=== PATIENT | male | born 1990 | race Caucasian/White ===

== ENCOUNTER 2017-10-30 20:13 | Emergency (ER) | payer OTHER ==
[~2017-10-30] VITALS: Ht 193 cm; Wt 106.6 kg
[~2017-10-30 20:13] MED LIST: NAPR550 PO; Zyprexa10 MG PO
== END 2017-10-30 20:39 | disposition home or self-care (01) ==
LOC: ER 20:13
DX: F25.9 Schizoaffective disorder, unspecified (principal); F17.210 Nicotine dependence, cigarettes, uncomplicated; Z79.899 Other long term (current) drug therapy
CPT/HCPCS: 99283

== ENCOUNTER 2017-10-31 10:13 | Inpatient (IN) | payer OTHER ==
[~2017-10-31] VITALS: Ht 190.5 cm; Wt 90.3 kg
[2017-10-31 10:28] LABS: Source, Urine Clean Catch
[2017-10-31 10:32] LABS: Bilirubin, Urine Neg (Neg); Blood, Urine Neg (Neg); Glucose Qualitative, Urine Neg (Neg); Ketones, Urine 1+ (Neg); Leukocyte Esterase, Urine 1+ (Neg); Nitrite, Urine Neg (Neg); Protein, Urine Neg (Neg); Specific Gravity, Urine 1.015 (1.003-1.022); Urobilinogen, Urine 1+ (Normal)
[2017-10-31 10:40] LABS: Appearance, Urine Clear (Clear); Color, Urine Yellow (P-Yellow)
[2017-10-31 10:50] LABS: U Amphetamine Screen Not Detected; U Barbituate Screen Not Detected; U Benzodiazapine Screen Not Detected; U Cannabinoids Screen DETECTED; U Cocaine Screen Not Detected; U Methadone Screen Not Detected; U Methamphetamine Screen Not Detected; U Opiates Screen Not Detected; U Phencyclidine Screen Not Detected
[2017-10-31 10:51] LABS: U Buprenorphine Screen Not Detected; U Oxycodone Screen Not Detected; U Propoxyphene Screen Not Detected
[2017-10-31 10:56] LABS: Red Blood Cells, Urine 0-2 /hpf (0-2); Squamous Epithelial Cells Few /hpf (Few)
[2017-10-31 10:57] LABS: Bacteria Few /hpf; Mucus Light (0-Heavy)
[2017-10-31 10:59] LABS: BASOPHILS ABSOLUTE AUTO 0.02 K/mm3 (0.00-0.23); BASOPHILS PERCENT AUTO 0 % (0-2); EOSINOPHILS ABSOLUTE AUTO 0.07 K/mm3 (0.00-0.68); EOSINOPHILS PERCENT AUTO 1 % (0-6); Hematocrit 40.8 % (37.0-53.0); Hemoglobin 14.1 g/dL (13.5-17.5); IMMATURE GRAN ABSOLUTE AUTO 0.02 K/mm3 (0.00-0.10); IMMATURE GRAN PERCENT AUTO 0 % (0-1); LYMPHOCYTES ABSOLUTE AUTO 2.15 K/mm3 (0.84-5.20); LYMPHOCYTES PERCENT AUTO 24 % (21-46); MONOCYTES ABSOLUTE AUTO 0.65 K/mm3 (0.16-1.47); MONOCYTES PERCENT AUTO 7 % (4-13); Mean Corpuscular HGB Conc 34.6 g/dL (31.5-36.5); Mean Corpuscular Volume 90 fL (80-100); Mean Platelet Volume 10.3 fL (9.1-12.4); NEUTROPHILS ABSOLUTE AUTO 6.16 K/mm3 (1.96-9.15); NEUTROPHILS PERCENT AUTO 68 % (41-73); Platelet Count 273 K/mm3 (150-400); RDW Coefficient Variation 14.4 % (11.7-14.2); RDW Standard Deviation 47.2 fL (35.1-46.3); Red Blood Cell Count 4.55 M/mm3 (4.30-5.90); White Blood Cell Count 9.07 K/mm3 (4.00-11.30)
[2017-10-31 11:21] LABS: Alanine Aminotransfer (ALT/SGP 26 U/L (12-78); Albumin, Blood 3.9 g/dL (3.4-5.0); Albumin/Globulin Ratio 1.3 (0.8-1.8); Alk Phos 49 U/L (50-136); Anion Gap 7 mmol/L (6-16); Aspartate Aminotrans (AST/SGOT 21 U/L (12-37); Bilirubin, Total 0.7 mg/dL (0.1-1.0); Blood Urea Nitrogen 9 mg/dL (8-24); Bun/Creatinine Ratio 9.8 (12.0-20.0); CO2, Blood 25 mmol/L (21-32); Chloride, Blood 112 mmol/L (98-108); Creatinine, Blood 0.92 mg/dL (0.60-1.20); Ethanol (Alcohol), Blood, Med <3 mg/dL; Glomerular Filtration Rate >60 (60-); Glucose, Blood 79 mg/dL (70-99); Potassium, Blood 3.9 mmol/L (3.5-5.5); Salicylate 3.1 mg/dL (2.8-20.0); Sodium, Blood 144 mmol/L (136-145); Total Protein, Blood 6.9 g/dL (6.4-8.2)
[2017-10-31 11:26] LABS: Thyroid Stimulating Hormone 0.776 uIU/mL (0.360-4.800)
[2017-10-31 11:35] LABS: Acetaminophen, Random <2.0 ug/mL (10.0-30.0)
[2017-10-31 12:44] LABS: CPK Creatine Kinase 174 U/L (39-308)
[2017-11-05] MEDS ORDERED: OLAN5A PO (09:57)
[2017-11-05] MEDS ORDERED: Cyclobenzaprine5 MG (10:00)
[2017-11-05] MEDS ORDERED: NICO21TP (10:01)
[2017-11-05] MEDS ORDERED: Oxycodone-Apap1 EAC3 (10:04)
== END 2017-11-05 10:48 | DRG 917 ==
LOC: ER 10:13 → ICUW 10:14 → MEDS 14:20 → ICUW 11-01 17:00 → MEDS 11-02 12:12 → ICUW 11-02 12:12 → MEDS 11-02 16:40 → ENPENDDIS 11-05 12:24
PROVIDERS: Emergency Medicine
DX: T43.592A Poisoning by other antipsychotics and neuroleptics, intentional self-harm, initial encounter (principal); G92 Toxic encephalopathy; F20.9 Schizophrenia, unspecified; F17.210 Nicotine dependence, cigarettes, uncomplicated; Z59.0 Homelessness; R00.0 Tachycardia, unspecified
CPT/HCPCS: 36415; 80053; 81001; 82550; 82947; 84443; 85025; 87086; 93005; 93010; 96361; 96374; 96375; 96376; 99285; G0378; G0480; J0696; J7030; J7042; J7120

== ENCOUNTER 2017-11-26 15:55 | Emergency (ER) | payer OTHER ==
[~2017-11-26] VITALS: Ht 185.4 cm; Wt 93.0 kg
[~2017-11-26 15:55] MED LIST changes: +Cyclobenzaprine5 MG; +NICO21TP; +OLAN5A PO; +Oxycodone-Apap1 EAC3
== END 2017-11-26 16:31 | disposition left against medical advice (07) ==
LOC: ER 15:55
DX: M54.5 Low back pain (principal); F20.9 Schizophrenia, unspecified; F17.200 Nicotine dependence, unspecified, uncomplicated; Z79.899 Other long term (current) drug therapy

== ENCOUNTER 2017-11-29 08:37 | Observation (INO) | payer OTHER ==
[~2017-11-29] VITALS: Ht 193 cm; Wt 93.0 kg
[2017-11-29] MEDS ORDERED: Adderall 20 MG20 MG PO (09:00)
[2017-11-29 09:49] LABS: BASOPHILS ABSOLUTE AUTO 0.02 K/mm3 (0.00-0.23); BASOPHILS PERCENT AUTO 0 % (0-2); EOSINOPHILS ABSOLUTE AUTO 0.05 K/mm3 (0.00-0.68); EOSINOPHILS PERCENT AUTO 1 % (0-6); Hematocrit 44.5 % (37.0-53.0); Hemoglobin 14.9 g/dL (13.5-17.5); IMMATURE GRAN ABSOLUTE AUTO 0.04 K/mm3 (0.00-0.10); IMMATURE GRAN PERCENT AUTO 1 % (0-1); LYMPHOCYTES ABSOLUTE AUTO 1.61 K/mm3 (0.84-5.20); LYMPHOCYTES PERCENT AUTO 24 % (21-46); MONOCYTES ABSOLUTE AUTO 0.45 K/mm3 (0.16-1.47); MONOCYTES PERCENT AUTO 7 % (4-13); Mean Corpuscular HGB 31.4 pg (26.0-34.0); Mean Corpuscular HGB Conc 33.5 g/dL (31.5-36.5); Mean Corpuscular Volume 94 fL (80-100); Mean Platelet Volume 10.5 fL (9.1-12.4); NEUTROPHILS ABSOLUTE AUTO 4.69 K/mm3 (1.96-9.15); NEUTROPHILS PERCENT AUTO 68 % (41-73); Platelet Count 257 K/mm3 (150-400); RDW Coefficient Variation 14.5 % (11.7-14.2); RDW Standard Deviation 50.4 fL (35.1-46.3); Red Blood Cell Count 4.75 M/mm3 (4.30-5.90); White Blood Cell Count 6.86 K/mm3 (4.00-11.30)
[2017-11-29 10:10] LABS: Alanine Aminotransfer (ALT/SGP 27 U/L (12-78); Albumin, Blood 3.9 g/dL (3.4-5.0); Alk Phos 60 U/L (50-136); Anion Gap 7 mmol/L (6-16); Aspartate Aminotrans (AST/SGOT 14 U/L (12-37); Bilirubin, Total 0.2 mg/dL (0.1-1.0); Blood Urea Nitrogen 7 mg/dL (8-24); Bun/Creatinine Ratio 9.3 (12.0-20.0); CO2, Blood 26 mmol/L (21-32); Calcium, Blood 9.1 mg/dL (8.5-10.1); Chloride, Blood 109 mmol/L (98-108); Creatinine, Blood 0.75 mg/dL (0.60-1.20); Ethanol (Alcohol), Blood, Med <3 mg/dL; Globulin, Blood 3.8 g/dL (2.2-4.0); Glomerular Filtration Rate >60 (60-); Glucose, Blood 63 mg/dL (70-99); Potassium, Blood 3.8 mmol/L (3.5-5.5); Salicylate 2.9 mg/dL (2.8-20.0); Sodium, Blood 142 mmol/L (136-145); Total Protein, Blood 7.7 g/dL (6.4-8.2)
[2017-11-29 10:13] LABS: Thyroid Stimulating Hormone 0.352 uIU/mL (0.360-4.800)
[2017-11-29 10:18] LABS: Acetaminophen, Random <2.0 ug/mL (10.0-30.0)
[2017-11-29 11:44] LABS: Bilirubin, Urine Neg (Neg); Blood, Urine Neg (Neg); Glucose Qualitative, Urine Neg (Neg); Ketones, Urine Neg (Neg); Leukocyte Esterase, Urine Neg (Neg); Nitrite, Urine Neg (Neg); Protein, Urine Neg (Neg); Specific Gravity, Urine 1.015 (1.003-1.022); Urobilinogen, Urine NORM (Normal)
[2017-11-29 12:05] LABS: Color, Urine Yellow (P-Yellow)
[2017-11-29 12:06] LABS: Appearance, Urine Clear (Clear)
[2017-11-29 12:59] LABS: U Amphetamine Screen DETECTED; U Barbituate Screen Not Detected; U Benzodiazapine Screen Not Detected; U Buprenorphine Screen Not Detected; U Cannabinoids Screen DETECTED; U Cocaine Screen Not Detected; U Methadone Screen Not Detected; U Methamphetamine Screen Not Detected; U Opiates Screen Not Detected; U Oxycodone Screen Not Detected; U Phencyclidine Screen Not Detected; U Propoxyphene Screen Not Detected
[2017-11-29] MEDS ORDERED: Zyprexa20 MG PO (15:51)
== END 2017-11-29 16:17 | disposition home or self-care (01) ==
LOC: ER 08:37 → EOR 10:32
PROVIDERS: Emergency Medicine
DX: F20.9 Schizophrenia, unspecified (principal); R45.851 Suicidal ideations; F17.210 Nicotine dependence, cigarettes, uncomplicated; Z79.899 Other long term (current) drug therapy
CPT/HCPCS: 36415; 80053; 81003; 84443; 85025; 99285; G0378; G0480; Q3014

== ENCOUNTER 2017-11-30 19:04 | Observation (INO) | payer OTHER ==
[~2017-11-30] VITALS: Ht 193 cm; Wt 91.1 kg
[~2017-11-30 19:04] MED LIST changes: +Adderall 20 MG20 MG PO; +Zyprexa20 MG PO
[2017-11-30 19:52] LABS: BASOPHILS ABSOLUTE AUTO 0.03 K/mm3 (0.00-0.23); BASOPHILS PERCENT AUTO 0 % (0-2); EOSINOPHILS ABSOLUTE AUTO 0.06 K/mm3 (0.00-0.68); EOSINOPHILS PERCENT AUTO 1 % (0-6); Hematocrit 42.1 % (37.0-53.0); Hemoglobin 14.5 g/dL (13.5-17.5); IMMATURE GRAN ABSOLUTE AUTO 0.03 K/mm3 (0.00-0.10); IMMATURE GRAN PERCENT AUTO 0 % (0-1); LYMPHOCYTES ABSOLUTE AUTO 2.79 K/mm3 (0.84-5.20); LYMPHOCYTES PERCENT AUTO 32 % (21-46); MONOCYTES ABSOLUTE AUTO 0.62 K/mm3 (0.16-1.47); MONOCYTES PERCENT AUTO 7 % (4-13); Mean Corpuscular HGB Conc 34.4 g/dL (31.5-36.5); Mean Corpuscular Volume 90 fL (80-100); Mean Platelet Volume 10.5 fL (9.1-12.4); NEUTROPHILS ABSOLUTE AUTO 5.24 K/mm3 (1.96-9.15); NEUTROPHILS PERCENT AUTO 60 % (41-73); Platelet Count 299 K/mm3 (150-400); RDW Coefficient Variation 14.1 % (11.7-14.2); RDW Standard Deviation 46.7 fL (35.1-46.3); Red Blood Cell Count 4.67 M/mm3 (4.30-5.90); White Blood Cell Count 8.77 K/mm3 (4.00-11.30)
[2017-11-30 19:57] LABS: Source, Urine Voided
[2017-11-30 19:59] LABS: Appearance, Urine Clear (Clear); Bilirubin, Urine Neg (Neg); Blood, Urine Neg (Neg); Color, Urine Yellow (P-Yellow); Glucose Qualitative, Urine Neg (Neg); Ketones, Urine Neg (Neg); Leukocyte Esterase, Urine Neg (Neg); Nitrite, Urine Neg (Neg); Protein, Urine Neg (Neg); Urobilinogen, Urine NORM (Normal); pH, Urine 6.5 (5.0-8.0)
[2017-11-30 20:08] LABS: Alanine Aminotransfer (ALT/SGP 31 U/L (12-78); Albumin, Blood 3.8 g/dL (3.4-5.0); Albumin/Globulin Ratio 1.1 (0.8-1.8); Alk Phos 58 U/L (50-136); Anion Gap 10 mmol/L (6-16); Aspartate Aminotrans (AST/SGOT 22 U/L (12-37); Bilirubin, Total 0.2 mg/dL (0.1-1.0); Blood Urea Nitrogen 8 mg/dL (8-24); Bun/Creatinine Ratio 8.3 (12.0-20.0); CO2, Blood 25 mmol/L (21-32); Calcium, Blood 8.9 mg/dL (8.5-10.1); Chloride, Blood 107 mmol/L (98-108); Creatinine, Blood 0.96 mg/dL (0.60-1.20); Ethanol (Alcohol), Blood, Med <3 mg/dL; Globulin, Blood 3.6 g/dL (2.2-4.0); Glomerular Filtration Rate >60 (60-); Glucose, Blood 99 mg/dL (70-99); Potassium, Blood 3.9 mmol/L (3.5-5.5); Salicylate 2.8 mg/dL (2.8-20.0); Sodium, Blood 142 mmol/L (136-145); Total Protein, Blood 7.4 g/dL (6.4-8.2)
[2017-11-30 20:13] LABS: U Amphetamine Screen Not Detected; U Barbituate Screen Not Detected; U Benzodiazapine Screen Not Detected; U Buprenorphine Screen Not Detected; U Cannabinoids Screen DETECTED; U Cocaine Screen Not Detected; U Methadone Screen Not Detected; U Methamphetamine Screen Not Detected; U Opiates Screen Not Detected; U Oxycodone Screen Not Detected; U Phencyclidine Screen Not Detected; U Propoxyphene Screen Not Detected
[2017-11-30 20:21] LABS: Acetaminophen, Random <2.0 ug/mL (10.0-30.0)
[2017-12-01 04:21] LABS: Hematocrit 43.2 % (37.0-53.0); Hemoglobin 14.9 g/dL (13.5-17.5); Mean Corpuscular HGB 31.4 pg (26.0-34.0); Mean Corpuscular HGB Conc 34.5 g/dL (31.5-36.5); Mean Corpuscular Volume 91 fL (80-100); Mean Platelet Volume 10.4 fL (9.1-12.4); Platelet Count 267 K/mm3 (150-400); RDW Standard Deviation 47.2 fL (35.1-46.3); Red Blood Cell Count 4.74 M/mm3 (4.30-5.90); White Blood Cell Count 7.65 K/mm3 (4.00-11.30)
[2017-12-01 04:43] LABS: Alanine Aminotransfer (ALT/SGP 26 U/L (12-78); Albumin, Blood 3.6 g/dL (3.4-5.0); Albumin/Globulin Ratio 1.1 (0.8-1.8); Alk Phos 57 U/L (50-136); Anion Gap 8 mmol/L (6-16); Aspartate Aminotrans (AST/SGOT 13 U/L (12-37); Bilirubin, Total 0.3 mg/dL (0.1-1.0); Blood Urea Nitrogen 7 mg/dL (8-24); Bun/Creatinine Ratio 9.4 (12.0-20.0); CO2, Blood 27 mmol/L (21-32); Calcium, Blood 8.9 mg/dL (8.5-10.1); Chloride, Blood 113 mmol/L (98-108); Creatinine, Blood 0.74 mg/dL (0.60-1.20); Globulin, Blood 3.3 g/dL (2.2-4.0); Glomerular Filtration Rate >60 (60-); Glucose, Blood 81 mg/dL (70-99); Potassium, Blood 3.7 mmol/L (3.5-5.5); Sodium, Blood 148 mmol/L (136-145); Total Protein, Blood 6.9 g/dL (6.4-8.2)
[2017-12-02 04:35] LABS: BASOPHILS ABSOLUTE AUTO 0.02 K/mm3 (0.00-0.23); BASOPHILS PERCENT AUTO 0 % (0-2); EOSINOPHILS ABSOLUTE AUTO 0.11 K/mm3 (0.00-0.68); EOSINOPHILS PERCENT AUTO 1 % (0-6); Hematocrit 41.5 % (37.0-53.0); Hemoglobin 14.2 g/dL (13.5-17.5); IMMATURE GRAN ABSOLUTE AUTO 0.04 K/mm3 (0.00-0.10); IMMATURE GRAN PERCENT AUTO 1 % (0-1); LYMPHOCYTES ABSOLUTE AUTO 3.11 K/mm3 (0.84-5.20); LYMPHOCYTES PERCENT AUTO 36 % (21-46); MONOCYTES ABSOLUTE AUTO 0.64 K/mm3 (0.16-1.47); MONOCYTES PERCENT AUTO 7 % (4-13); Mean Corpuscular HGB 31.3 pg (26.0-34.0); Mean Corpuscular HGB Conc 34.2 g/dL (31.5-36.5); Mean Corpuscular Volume 92 fL (80-100); Mean Platelet Volume 10.7 fL (9.1-12.4); NEUTROPHILS PERCENT AUTO 55 % (41-73); Platelet Count 271 K/mm3 (150-400); RDW Coefficient Variation 14.4 % (11.7-14.2); RDW Standard Deviation 48.6 fL (35.1-46.3); Red Blood Cell Count 4.53 M/mm3 (4.30-5.90); White Blood Cell Count 8.62 K/mm3 (4.00-11.30)
[2017-12-02 04:56] LABS: Anion Gap 11 mmol/L (6-16); Blood Urea Nitrogen 8 mg/dL (8-24); CO2, Blood 25 mmol/L (21-32); Calcium, Blood 8.8 mg/dL (8.5-10.1); Chloride, Blood 109 mmol/L (98-108); Glomerular Filtration Rate >60 (60-); Glucose, Blood 108 mg/dL (70-99); Potassium, Blood 3.3 mmol/L (3.5-5.5); Salicylate 2.2 mg/dL (2.8-20.0); Sodium, Blood 145 mmol/L (136-145)
[2017-12-09] MEDS ORDERED: OLAN5 PO (15:49)
[2017-12-09] MEDS ORDERED: CLON.1 PO (15:50)
[2017-12-09] MEDS ORDERED: META800 PO (15:50)
[2017-12-09] MEDS ORDERED: NAPR500 PO (15:51)
[2017-12-09] MEDS ORDERED: Nicoderm Cq1 EAC1 TD (15:51)
[2017-12-09] MEDS ORDERED: QUET100 PO (15:52)
[2017-12-09] MEDS ORDERED: QUET25 PO (15:53)
== END 2017-12-09 16:15 | disposition home or self-care (01) ==
LOC: ER 19:04 → ICUW 19:05 → ICUE 19:05 → MEDS 12-02 12:38
PROVIDERS: Emergency Medicine; Internal Medicine
DX: T43.592A Poisoning by other antipsychotics and neuroleptics, intentional self-harm, initial encounter (principal); F20.9 Schizophrenia, unspecified; E87.1 Hypo-osmolality and hyponatremia; E87.6 Hypokalemia; M54.9 Dorsalgia, unspecified; M54.2 Cervicalgia; G89.29 Other chronic pain; F17.200 Nicotine dependence, unspecified, uncomplicated; R00.0 Tachycardia, unspecified; Z79.899 Other long term (current) drug therapy
CPT/HCPCS: 36415; 51701; 80048; 80053; 81003; 84443; 85025; 85027; 93005; 93010; 96360; 96361; 96372; 96374; 96376; 99285; G0378; G0480; J1650; J2060; J7030

== ENCOUNTER 2018-02-20 12:55 | Emergency (ER) | payer OTHER ==
[~2018-02-20] VITALS: Ht 175.3 cm; Wt 90.7 kg
[~2018-02-20 12:55] MED LIST changes: +Bactrim Ds Tab1 EACH PO; +CEPH500 PO; +CLON.1 PO; +META800 PO; +NAPR500 PO; +Naprosyn500 MG PO; +Nicoderm Cq1 EAC1 TD; +OLAN5 PO; +OLAN5A MM; +QUET100 PO; +QUET25 PO
[2018-02-20] MEDS ORDERED: Bactrim Ds Tab1 EACH PO (13:40)
[2018-02-20] MEDS ORDERED: IBUP800 PO (13:40)
[2018-02-20] MEDS ORDERED: CEPH500 PO (13:40)
== END 2018-02-20 14:50 | disposition home or self-care (01) ==
LOC: ER 12:55
DX: L03.115 Cellulitis of right lower limb (principal); L03.116 Cellulitis of left lower limb; F20.9 Schizophrenia, unspecified; F17.200 Nicotine dependence, unspecified, uncomplicated
CPT/HCPCS: 99283

== ENCOUNTER 2018-06-25 15:05 | Emergency (ER) | payer OTHER ==
[~2018-06-25] VITALS: Ht 193 cm; Wt 103.0 kg
[~2018-06-25 15:05] MED LIST changes: +IBUP800 PO; +OLAN10 PO
[2018-06-25] MEDS ORDERED: Zyprexa10 MG PO (15:58)
[2018-06-25] MEDS ORDERED: Mucinex100 MG PO (15:58)
[2018-07-19] MEDS ORDERED: OLAN5A SL (20:48)
== END 2018-06-25 16:05 | disposition home or self-care (01) ==
LOC: ER 15:05
DX: J11.1 Influenza due to unidentified influenza virus with other respiratory manifestations (principal); F20.9 Schizophrenia, unspecified; F17.200 Nicotine dependence, unspecified, uncomplicated; Z79.2 Long term (current) use of antibiotics; Z79.899 Other long term (current) drug therapy
CPT/HCPCS: 87081; 87430; 99283

== ENCOUNTER 2018-07-11 11:42 | Emergency (ER) | payer OTHER ==
[~2018-07-11] VITALS: Ht 193 cm; Wt 103.0 kg
[~2018-07-11 11:42] MED LIST changes: +Mucinex100 MG PO
[2018-07-11] MEDS ORDERED: Naprosyn500 MG PO (13:17)
[2018-07-19] MEDS ORDERED: OLAN5A SL (20:48)
== END 2018-07-11 13:35 | disposition home or self-care (01) ==
LOC: ER 11:42
DX: M54.6 Pain in thoracic spine (principal); Z79.2 Long term (current) use of antibiotics; Z79.899 Other long term (current) drug therapy
CPT/HCPCS: 96372; 99282-25; J1885

== ENCOUNTER 2018-07-28 00:45 | Observation (INO) | payer OTHER ==
[~2018-07-28] VITALS: Ht 193 cm; Wt 100.2 kg
[~2018-07-28 00:45] MED LIST changes: +OLAN5A SL
== END 2018-07-28 13:26 | disposition home or self-care (01) ==
LOC: ER 00:45 → EOR 00:46
PROVIDERS: ADMIT Emergency Medicine
DX: F20.9 Schizophrenia, unspecified (principal); F17.200 Nicotine dependence, unspecified, uncomplicated; Z79.899 Other long term (current) drug therapy
CPT/HCPCS: 99285; G0378; Q3014

== ENCOUNTER → 2019-01-04 | Outpatient (CLI) | payer OTHER ==
[2019-01-04 16:53] LABS: U Amphetamine Screen Not Detected; U Barbituate Screen Not Detected; U Benzodiazapine Screen Not Detected; U Buprenorphine Screen Not Detected; U Cannabinoids Screen Not Detected; U Cocaine Screen Not Detected; U Methadone Screen Not Detected; U Methamphetamine Screen Not Detected; U Opiates Screen Not Detected; U Oxycodone Screen Not Detected; U Phencyclidine Screen Not Detected; U Propoxyphene Screen Not Detected
== END ==
LOC: LAB SHORT 16:15 → LAB 16:15
PROVIDERS: Registered Nurse
DX: Z51.81 Encounter for therapeutic drug level monitoring (principal); Z79.899 Other long term (current) drug therapy

== ENCOUNTER 2022-03-30 06:50 | Emergency (ER) | payer OTHER ==
[~2022-03-30] VITALS: Ht 182.9 cm; Wt 79.4 kg
[~2022-03-30 06:50] MED LIST changes: +BENZ2 PO; +CHLORPROMAZINE PO; +QUET300 PO; +QUETIAPINE FUM PO; +ZOLOFT100 M9 PO
[2022-03-30] MEDS ORDERED: BENZ2 PO (07:19)
[2022-03-30] MEDS ORDERED: CHLORPROMAZINE PO (07:19)
== END 2022-03-30 07:38 | disposition home or self-care (01) ==
LOC: ER 06:50
DX: F20.9 Schizophrenia, unspecified (principal); Z87.891 Personal history of nicotine dependence
CPT/HCPCS: 99283; A9270

== ENCOUNTER 2023-03-08 01:57 | Emergency (ER) | payer OTHER ==
[~2023-03-08] VITALS: Ht 185.4 cm; Wt 102.1 kg
[2023-03-08 02:01] VITALS: BP 153/103
== END 2023-03-08 03:04 | disposition home or self-care (01) ==
LOC: ER 01:57
DX: Z03.6 Encounter for observation for suspected toxic effect from ingested substance ruled out (principal); F20.9 Schizophrenia, unspecified; Z87.891 Personal history of nicotine dependence
CPT/HCPCS: 99283

== ENCOUNTER 2025-03-09 12:11 | Inpatient (IN) | payer OTHER ==
[~2025-03-09] VITALS: Ht 185.4 cm; Wt 70.5 kg
[2025-03-09] MEDS ORDERED: LORazepam 2 MG/ML 1ML Injection IV ONE (12:55)
[2025-03-09] MEDS ORDERED: NS 1,000 ML IV SCH ×2 (12:55→15:10)
[2025-03-09 12:58] LABS: BASOPHILS ABSOLUTE AUTO 0.02 K/mm3 (0.00-0.23); BASOPHILS PERCENT AUTO 0 % (0-2); EOSINOPHILS ABSOLUTE AUTO 0.15 K/mm3 (0.00-0.68); EOSINOPHILS PERCENT AUTO 3 % (0-6); Hematocrit 48.7 % (37.0-53.0); Hemoglobin 17.4 g/dL (13.5-17.5); IMMATURE GRAN ABSOLUTE AUTO 0.01 K/mm3 (0.00-0.10); IMMATURE GRAN PERCENT AUTO 0 % (0-1); LYMPHOCYTES ABSOLUTE AUTO 1.37 K/mm3 (0.84-5.20); LYMPHOCYTES PERCENT AUTO 26 % (21-46); MONOCYTES ABSOLUTE AUTO 0.36 K/mm3 (0.16-1.47); MONOCYTES PERCENT AUTO 7 % (4-13); Mean Corpuscular HGB Conc 35.7 g/dL (31.5-36.5); Mean Corpuscular Volume 90 fL (80-100); NEUTROPHILS ABSOLUTE AUTO 3.39 K/mm3 (1.96-9.15); NEUTROPHILS PERCENT AUTO 64 % (41-73); NRBC ABSOLUTE 0.00 K/mm3 (0.00-0.02); NRBC Auto 0.0 /100 WBC (0.0-0.2); Platelet Count 201 K/mm3 (150-400); RDW Coefficient Variation 12.6 % (11.7-14.2); RDW Standard Deviation 41.2 fL (35.1-46.3)
[2025-03-09 13:10] LABS: Alanine Aminotransfer (ALT/SGP 42.0 U/L (12-78); Albumin, Blood 4.1 g/dL (3.4-5.0); Albumin/Globulin Ratio 1.2 (0.8-1.8); Anion Gap 9.0 mmol/L (3-11); Aspartate Aminotrans (AST/SGOT 26.0 U/L (12-37); Bilirubin, Total 0.8 mg/dL (0.1-1.0); Blood Urea Nitrogen 6.0 mg/dL (8-24); CO2, Blood 25.0 mmol/L (21-32); Calcium, Blood 9.8 mg/dL (8.5-10.1); Chloride, Blood 104.0 mmol/L (98-108); Creatinine, Blood 1.05 mg/dL (0.60-1.20); Globulin, Blood 3.4 g/dL (2.2-4.0); Glucose, Blood 106.0 mg/dL (70-99); Potassium, Blood 3.5 mmol/L (3.5-5.5); Sodium, Blood 134.0 mmol/L (136-145); Total Protein, Blood 7.5 g/dL (6.4-8.2)
[2025-03-09 14:15] LABS: U Amphetamine Screen Not Detected; U Barbituate Screen Not Detected; U Benzodiazapine Screen Not Detected; U Buprenorphine Screen Not Detected; U Cannabinoids Screen DETECTED; U Cocaine Screen Not Detected; U Methadone Screen Not Detected; U Methamphetamine Screen Not Detected; U Opiates Screen Not Detected; U Oxycodone Screen Not Detected; U Phencyclidine Screen Not Detected
[2025-03-09] MEDS ORDERED: FLU VACC TS2025-26(6MOS UP)/PF 45 MCG/0.5 ML SYRINGE IM SCH (15:05)
[2025-03-09] MEDS ORDERED: NS 1,000 ML IV ONE ×2 (16:00→18:24)
--- NOTE | 2025-03-09 18:53 | NUR ---
ADMISSION NOTE: PATIENT ARRIVES TO ROOM AT 1846 VIA GURNEY FROM ER FOR DX'S OF CATATONIA SCHITZOPRENIA. PATIENT TRANSFERRED TO BED c SBA. QUICK ADMISSION COMPLETED. REPORTS GIVEN TO NOC SUSANA VARMA.
[2025-03-09 18:58] VITALS: BP 134/91
[2025-03-09] MEDS ORDERED: LORazepam 2 MG/ML 1ML Injection IV SCH (21:00)
[2025-03-09] MEDS ORDERED: OLAN5 PO (22:06)
[2025-03-09] MEDS ORDERED: BENZ1 PO (22:15)
[2025-03-09] MEDS ORDERED: OMEP20ER PO (22:16)
[2025-03-10 01:48] VITALS: BP 127/88
--- NOTE | 2025-03-10 05:15 | NUR ---
SHIFT SUMMARY PT ALERT BUT DIFFICULT TO ASSESS MENTATION. PT DOES NOT ENGAGE IN CONVERSATION BUT WILL NOD HEAD "YES" TO YES/NO QUESTIONS AND GRUNTS. PT HAS FLAT EFFECT. PT DID EAT SOME SNACK DURING THE NIGHT. NS INFUSING PER EMAR. UPDATED PT's MOM AND START OF SHIFT. VSS. PT DOES NOT USE CALL LIGHT SO BED ALARM ON. BED IN LOWEST POSITION AND CALL LIGHT IN REACH.
[2025-03-10 07:40] VITALS: BP 116/68
[2025-03-10] MEDS ORDERED: Enoxaparin 40 MG/0.4 ML SYR SC SCH (09:00)
--- NOTE | 2025-03-10 10:38 | NUR ---
CONSULT-VERBAL ORDER NOTE: DR. REYES (PHYCHIATRY) CAME IN AT 1038 FOR CONSULT, SPOKE TO PATIENT BRIEFLY. RECEIVED VO TO CHANGED ATIVAN 1 MG IV FREQUENCY TO FOUR TIMES DAILY AND CTM.
[2025-03-10] MEDS ORDERED: LORazepam 2 MG/ML 1ML Injection IV SCH (13:00)
[2025-03-10 13:44] LABS: CHOL/HDL RATIO 4.1; Cholesterol 143 mg/dL (50-200); HDL Cholesterol 35 mg/dL (>39); LDL/HDL RATIO 2.6; Low Density Lipoprotein Chol 92 mg/dL (0-110); Thyroid Stimulating Hormone 1.050 uIU/mL (0.360-4.800); Triglycerides 79 mg/dL (30-140); Very Low Density Lipoprot Chol 15 mg/dL (6-28)
[2025-03-10 15:24] VITALS: BP 132/83
--- NOTE | 2025-03-10 18:08 | NUR ---
SHIFT SUMMARY: PATIENT A/OX3, ANSWER TO SHORT QUESTIONS AND SOMETIMES HE ANSWER c "LUDWIG, UH, NAH." PATIENT HAS FLAT AFFECT, FOLLOWING COMMANDS AND COOPERATIVE c CARE. PATIENT HAS BEEN DRINKING FLUIDS, BUT FEW BITES FOR BREAKFAST AND LUNCH. PATIENT HEAD CT W/OUT CONTRAST WAS DONE TODAY c RESULT AVAILABLE TO VIEW. PATIENT AMBULATED TO BATHROOM c SBA. VITAL SIGNS REVIEWED. BED ALARM ON FOR SAFETY. CALL LIGHT IN REACH.
[2025-03-10 21:13] VITALS: BP 123/80
[2025-03-11 03:35] VITALS: BP 119/80
--- NOTE | 2025-03-11 04:28 | NUR ---
SHIFT SUMMARY PT A&Ox2-3. FLAT EFFECT. RESPONDS TO QUESTIONS WITH GRUNTS OR SHORT ANSWERS. NS INFUSING @ 100ml/hr. PT EATING AND DRINKING WELL. PT's MOM GIVEN UPDATE. VSS. BED ALARM ON. BED IN LOWEST POSITION AND CALL LIGHT IN REACH.
[2025-03-11 06:20] LABS: BASOPHILS ABSOLUTE AUTO 0.03 K/mm3 (0.00-0.23); BASOPHILS PERCENT AUTO 1 % (0-2); EOSINOPHILS ABSOLUTE AUTO 0.18 K/mm3 (0.00-0.68); EOSINOPHILS PERCENT AUTO 3 % (0-6); Hematocrit 41.7 % (37.0-53.0); Hemoglobin 14.6 g/dL (13.5-17.5); IMMATURE GRAN ABSOLUTE AUTO 0.01 K/mm3 (0.00-0.10); IMMATURE GRAN PERCENT AUTO 0 % (0-1); LYMPHOCYTES ABSOLUTE AUTO 1.70 K/mm3 (0.84-5.20); LYMPHOCYTES PERCENT AUTO 32 % (21-46); MONOCYTES ABSOLUTE AUTO 0.52 K/mm3 (0.16-1.47); MONOCYTES PERCENT AUTO 10 % (4-13); Mean Corpuscular HGB Conc 35.0 g/dL (31.5-36.5); Mean Corpuscular Volume 92 fL (80-100); NEUTROPHILS ABSOLUTE AUTO 2.82 K/mm3 (1.96-9.15); NEUTROPHILS PERCENT AUTO 54 % (41-73); NRBC ABSOLUTE 0.00 K/mm3 (0.00-0.02); NRBC Auto 0.0 /100 WBC (0.0-0.2); Platelet Count 210 K/mm3 (150-400); RDW Coefficient Variation 12.7 % (11.7-14.2); RDW Standard Deviation 42.6 fL (35.1-46.3)
[2025-03-11 06:36] LABS: Anion Gap 7.0 mmol/L (3-11); Blood Urea Nitrogen 4.0 mg/dL (8-24); CO2, Blood 28.0 mmol/L (21-32); Calcium, Blood 8.9 mg/dL (8.5-10.1); Chloride, Blood 109.0 mmol/L (98-108); Creatinine, Blood 1.06 mg/dL (0.60-1.20); Glucose, Blood 97.0 mg/dL (70-99); Potassium, Blood 3.6 mmol/L (3.5-5.5); Sodium, Blood 140.0 mmol/L (136-145)
[2025-03-11 07:08] VITALS: BP 98/86
[2025-03-11 15:38] VITALS: BP 119/83
--- NOTE | 2025-03-11 17:27 | NUR ---
SHIFT SUMMARY: PATIENT A/OX3, TALKING MORE TODAY AND ABLE TO EXPRESS HIS NEEDS IN FULL SENTENCES, STILL HAS FLAT AFFECT, BUT COOPERATIVE c CARE. PATIENT APPETITE HAS IMPROVED ATE 100% AT BREAKFAST, 75% AT LUNCH AND SNACKS WELL DRINKING FLUIDS WITHOUT ANY ISSUES. 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 PATIENT RECEIVED SCHEDULED MEDS PER EMAR. VITAL SIGNS REVIEWED. PATIENT HAS NO IV ACCESS PER ORDER. CALL LIGHT IN REACH.
[2025-03-11 19:43] VITALS: BP 127/93
--- NOTE | 2025-03-12 03:08 | NUR ---
SHIFT SUMMARY NO ACUTE EVENTS DURING THIS SHIFT. PT ABLE TO NOD AND VOCALIZE "UH" WHEN ASKING CLOSE-ENDED QUESTIONS. AFFECT IS FLAT, AND PT IS WITHDRAWN. PT DENIES PAIN AND DISCOMFORT. PT IS INDEPENDENT W/I THE HOSPITAL ROOM. PT IS ABLE TO MAKE HIS NEEDS KNOWN AND IS COOPERTIVE WITH CARE. NO ACUTE DISTRESS NOTED/REPORTED. BED AT THE LOWEST POSITION, CALL LIGHT W/I REACH.
[2025-03-12 03:15] VITALS: BP 130/87
[2025-03-12 07:08] VITALS: BP 117/75
[2025-03-12] MEDS ORDERED: Multivitamins 1 Tab PO SCH (09:00)
[2025-03-12] MEDS ORDERED: B-1100 M1 PO (15:09)
[2025-03-12] MEDS ORDERED: Ativan1 MG PO (15:09)
[2025-03-12] MEDS ORDERED: MULVITA PO (15:09)
[2025-03-12 15:10] VITALS: BP 139/93
--- NOTE | 2025-03-12 15:42 | NUR ---
PT DISCHARGED TO U. PT NOTIFIED REGARDING TRANSFER AND PT AGREEABLE. REPORT PROVIDED TO KOJO NORRIS. ALL BELONGINGS PROVIDED TO TRANSPORTER, SECURITY ACCOMPANIED TRANSFER TO U. PT ABLE TO STAND AND AMBULATE INDEPENDENTLY TO WHEELCHAIR. NO IV ACCESS AT TIME OF DISCHARGE.
== END 2025-03-12 15:34 | DRG 885 ==
LOC: ER 12:11 → ERHOLD 12:12 → MEDS 12:12 → ER 12:12 → ERHOLD 18:40 → MEDS 18:40
PROVIDERS: Emergency Medicine; Student in an Organized Health Care Education/Training Program; ADMIT Hospitalist
DX: F20.2 Catatonic schizophrenia (principal); E87.1 Hypo-osmolality and hyponatremia; E78.5 Hyperlipidemia, unspecified; F12.90 Cannabis use, unspecified, uncomplicated; Z91.51 Personal history of suicidal behavior; Z87.891 Personal history of nicotine dependence; Z91.148 Patient's other noncompliance with medication regimen for other reason
CPT/HCPCS: 36415; 70450; 71045; 80048; 80053; 80061; 83690; 84443; 84484; 85025; 93005; 93010; 96361; 96374; 99285-25; A9270; G0378; J2060; J7030

== ENCOUNTER → 2025-05-11 | Outpatient (CLI) | payer OTHER ==
[~2025-05-11] MED LIST changes: +Ativan1 MG PO; +B-1100 M1 PO; +BENZ1 PO; +FLUO10 PO; +MULVITA PO; +OMEP20ER PO; +PALI3TAB INJ
[2025-05-11 16:06] LABS: BASOPHILS ABSOLUTE AUTO 0.02 K/mm3 (0.00-0.23); BASOPHILS PERCENT AUTO 0 % (0-2); EOSINOPHILS ABSOLUTE AUTO 0.17 K/mm3 (0.00-0.68); EOSINOPHILS PERCENT AUTO 4 % (0-6); Hematocrit 42.8 % (37.0-53.0); Hemoglobin 14.4 g/dL (13.5-17.5); IMMATURE GRAN ABSOLUTE AUTO 0.01 K/mm3 (0.00-0.10); IMMATURE GRAN PERCENT AUTO 0 % (0-1); LYMPHOCYTES ABSOLUTE AUTO 1.53 K/mm3 (0.84-5.20); LYMPHOCYTES PERCENT AUTO 31 % (21-46); MONOCYTES ABSOLUTE AUTO 0.29 K/mm3 (0.16-1.47); MONOCYTES PERCENT AUTO 6 % (4-13); Mean Corpuscular HGB Conc 33.6 g/dL (31.5-36.5); Mean Corpuscular Volume 94 fL (80-100); NEUTROPHILS ABSOLUTE AUTO 2.86 K/mm3 (1.96-9.15); NEUTROPHILS PERCENT AUTO 59 % (41-73); NRBC ABSOLUTE 0.00 K/mm3 (0.00-0.02); NRBC Auto 0.0 /100 WBC (0.0-0.2); Platelet Count 249 K/mm3 (150-400); RDW Coefficient Variation 13.4 % (11.7-14.2); RDW Standard Deviation 45.9 fL (35.1-46.3)
[2025-05-11 16:11] LABS: Alanine Aminotransfer (ALT/SGP 72 U/L (12-78); Albumin, Blood 3.9 g/dL (3.4-5.0); Albumin/Globulin Ratio 1.3 (0.8-1.8); Aspartate Aminotrans (AST/SGOT 41 U/L (12-37); Bilirubin, Direct 0.2 mg/dL (0.0-0.3); Bilirubin, Indirect 0.7 mg/dL (0.1-0.7); Bilirubin, Total 0.9 mg/dL (0.1-1.0); CHOL/HDL RATIO 4.5; Cholesterol 187 mg/dL (50-200); Globulin, Blood 3.1 g/dL (2.2-4.0); HDL Cholesterol 42 mg/dL (>39); LDL/HDL RATIO 2.9; Low Density Lipoprotein Chol 120 mg/dL (0-110); Total Protein, Blood 7.0 g/dL (6.4-8.2); Triglycerides 125 mg/dL (30-140); Very Low Density Lipoprot Chol 25 mg/dL (6-28)
[2025-05-11 16:20] LABS: Alanine Aminotransfer (ALT/SGP 75.0 U/L (12-78); Albumin, Blood 3.9 g/dL (3.4-5.0); Albumin/Globulin Ratio 1.2 (0.8-1.8); Anion Gap 7.0 mmol/L (3-11); Aspartate Aminotrans (AST/SGOT 38.0 U/L (12-37); Bilirubin, Total 1.0 mg/dL (0.1-1.0); Blood Urea Nitrogen 6.0 mg/dL (8-24); CO2, Blood 28.0 mmol/L (21-32); Calcium, Blood 9.3 mg/dL (8.5-10.1); Chloride, Blood 108.0 mmol/L (98-108); Creatinine, Blood 1.03 mg/dL (0.60-1.20); Globulin, Blood 3.3 g/dL (2.2-4.0); Glucose, Blood 88.0 mg/dL (70-99); Magnesium, Blood 2.1 mg/dL (1.6-2.4); Potassium, Blood 3.8 mmol/L (3.5-5.5); Sodium, Blood 139.0 mmol/L (136-145); Total Protein, Blood 7.2 g/dL (6.4-8.2)
== END ==
LOC: LAB 14:10 → LAB SHORT 14:10
PROVIDERS: Registered Nurse
DX: R63.5 Abnormal weight gain (principal); Z79.899 Other long term (current) drug therapy
CPT/HCPCS: 80053; 80061; 80076; 83036; 83735; 85025